=== PATIENT | male | born 1970 | race Caucasian/White ===

== ENCOUNTER 2021-11-28 12:45 | Inpatient (IN) ==
[2021-11-28 15:00] LABS: Basophils # 0.1 K/mcL (0.0-0.2); Basophils % 0.9 %; Eosinophils # 0.2 K/mcL (0.0-0.6); Eosinophils % 3.3 %; Hematocrit 27.3 % (37.5-50.1); Hemoglobin 8.1 g/dL (12.9-16.9); Immature Granulocytes % 0.3 % (0-4); Lymphocytes # 1.8 K/mcL (0.6-4.6); Lymphocytes % 26.7 %; Mean Corpuscular HGB Conc 29.7 g/dL (31.6-35.5); Mean Corpuscular Hemoglobin 29.1 pg (28.0-33.3); Mean Corpuscular Volume 98.2 fL (83.0-100.0); Mean Platelet Volume 8.9 fL (9.4-12.4); Monocytes # 0.7 K/mcL (0.0-1.3); Monocytes % 11.2 %; Neutrophils # 3.8 K/mcL (1.6-8.9); Platelet Count 308 K/mcL (140-400); Red Blood Count 2.78 M/mcL (4.19-5.50); Red Cell Distribution Width 17.5 % (11.5-14.5); Segmented Neutrophils % 57.6 %; White Blood Count 6.6 K/mcL (4.3-11.1)
[2021-11-28 15:08] LABS: INR 1.4; Prothrombin Time 15.9 Seconds (9.4-12.1)
[2021-11-28 15:10] LABS: Activated Partial Thrombo Time 41.9 Seconds (26.0-36.0)
[2021-11-28 15:40] LABS: Alanine Aminotransferase 14 Units/L (7-52); Albumin 2.8 g/dL (3.5-5.7); Albumin/Globulin Ratio 0.6 (1.1-2.2); Alkaline Phosphatase 111 Units/L (34-104); Aspartate Amino Transferase 19 Units/L (13-39); BUN/Creatinine Ratio 14 (6-26); Bilirubin,Direct 0.1 mg/dL (0.0-0.2); Bilirubin,Indirect 0.3 mg/dL (0.0-1.0); Bilirubin,Total 0.4 mg/dL (0.3-1.0); Blood Urea Nitrogen 58 mg/dL (6-20); Calcium 8.4 mg/dL (8.6-10.3); Carbon Dioxide 26 mEq/L (23-29); Chloride 104 mEq/L (98-107); Globulin 4.5 g/dL (2.4-3.5); Glucose 103 mg/dL (70-105); Osmolality,Calculated 294 (280-300); Potassium 5.2 mEq/L (3.5-5.1); Sodium 134 mEq/L (136-145); Total Protein 7.3 g/dL (6.4-8.9); eGFR For African Americans 18 (> 60); eGFR For Non-African Americans 15 (> 60)
[2021-11-28] MEDS ORDERED: Isovue-370 500 ML BOTTLE IVP ONE (16:28)
[2021-11-28 17:36] LABS: Troponin I < 0.03 ng/mL (< 0.04)
[2021-11-28] MEDS ORDERED: Furosemide 40 MG/4 ML VIAL IVP ONE (20:47)
[2021-11-28] MEDS ORDERED: Acetaminophen 325 MG TABLET PO PRN (20:54)
[2021-11-28] MEDS ORDERED: Ondansetron 4 MG/2 ML VIAL IVP PRN (20:54)
[2021-11-28] MEDS ORDERED: Naloxone 0.4 MG/ML INJ IVP PRN (20:54)
[2021-11-28] MEDS ORDERED: Morphine Sulfate 2 MG/ML SYRINGE IVP ONE (22:06)
[2021-11-28 22:40] LABS: Influenza A PCR Negative (Negative); Influenza B PCR Negative (Negative); Resp. Syncytial Virus PCR Negative (Negative)
[2021-11-28 22:42] LABS: SARS-CoV-2 by PCR (In House) Negative (Negative)
[2021-11-29] MEDS ORDERED: Perflutren Lipid Microsphere 1.3 ML in 0.9 % Sodium Chloride 8.7 ML IVP PRN (03:39)
[2021-11-29] MEDS ORDERED: methocarbamoL 500 MG TABLET PO PRN (03:48)
[2021-11-29] MEDS ORDERED: SILDENAFIL CITRATE 50 MG PO PRN (03:48)
[2021-11-29] MEDS ORDERED: *HR* HYDROmorphone 2 MG TABLET PO PRN (03:48)
[2021-11-29] MEDS ORDERED: *HR* FentaNYL PATCH 50 MCG PATCH TD SCH (04:00)
[2021-11-29] MEDS: Gabapentin 300 MG CAPSULE PO SCH ×2 (08:17→21:17)
[2021-11-29 09:52] LABS: Hematocrit 29.2 % (37.5-50.1); Hemoglobin 8.5 g/dL (12.9-16.9); Mean Corpuscular HGB Conc 29.1 g/dL (31.6-35.5); Mean Corpuscular Hemoglobin 29.2 pg (28.0-33.3); Mean Corpuscular Volume 100.3 fL (83.0-100.0); Mean Platelet Volume 9.2 fL (9.4-12.4); Platelet Count 341 K/mcL (140-400); Red Blood Count 2.91 M/mcL (4.19-5.50); Red Cell Distribution Width 17.2 % (11.5-14.5); White Blood Count 6.7 K/mcL (4.3-11.1)
[2021-11-29 10:11] LABS: Calcium 8.5 mg/dL (8.6-10.3); Magnesium 1.7 mg/dL (1.6-2.6); Phosphorous 4.5 mg/dL (2.7-4.5); Potassium 5.4 mEq/L (3.5-5.1)
[2021-11-29 11:25] LABS: Hepatitis B Surface Antibody < 3.10 mIU/mL
[2021-11-29 11:36] LABS: Hepatitis B Surface Antigen Nonreactive (Nonreactive)
[2021-11-29] MEDS ORDERED: 0.9 % Sodium Chloride 250 ML IVC PRN (11:46)
[2021-11-29] MEDS ORDERED: 0.9 % Sodium Chloride 1,000 ML PRIME SCH (12:00)
[2021-11-29] MEDS: *HR* HYDROmorphone 2 MG TABLET PO PRN ×2 (16:22→22:49)
[2021-11-29] MEDS ORDERED: Ipratropium/Albuterol Neb 3 ML IH PRN (16:59)
[2021-11-29] MEDS ORDERED: Leptospermum Honey Gel 44 ML TUBE TP SCH (21:00)
[2021-11-29] MEDS: (Doxepin Hcl 10 MG Capsule) PO SCH (21:17)
[2021-11-29] MEDS: *HR* Heparin 5,000 UNIT/ML VIAL SQ SCH (22:01)
[2021-11-29] MEDS: Leptospermum Honey Gel 44 ML TUBE TP SCH (23:15)
[2021-11-30] MEDS ORDERED: Furosemide 20 MG/2 ML VIAL IVP ONE (00:19)
[2021-11-30] MEDS: *HR* Heparin 5,000 UNIT/ML VIAL SQ SCH ×3 (05:22→20:10)
[2021-11-30 07:17] LABS: Hematocrit 27.3 % (37.5-50.1); Hemoglobin 8.2 g/dL (12.9-16.9); Mean Corpuscular Hemoglobin 29.2 pg (28.0-33.3); Mean Corpuscular Volume 97.2 fL (83.0-100.0); Mean Platelet Volume 9.3 fL (9.4-12.4); Platelet Count 332 K/mcL (140-400); Red Blood Count 2.81 M/mcL (4.19-5.50); Red Cell Distribution Width 16.9 % (11.5-14.5); White Blood Count 5.7 K/mcL (4.3-11.1)
[2021-11-30 07:27] LABS: INR 1.5; Prothrombin Time 16.3 Seconds (9.4-12.1)
[2021-11-30] MEDS: *HR* HYDROmorphone 2 MG TABLET PO PRN ×3 (08:57→21:58)
[2021-11-30] MEDS: Gabapentin 300 MG CAPSULE PO SCH ×2 (08:57→20:10)
[2021-11-30 10:23] LABS: Calcium 8.3 mg/dL (8.6-10.3); Potassium 4.7 mEq/L (3.5-5.1)
[2021-11-30] MEDS: Furosemide 40 MG TABLET PO SCH (11:51)
[2021-11-30] MEDS: (Doxepin Hcl 10 MG Capsule) PO SCH (20:10)
[2021-11-30] MEDS: Acetaminophen 325 MG TABLET PO PRN (23:22)
[2021-12-01] MEDS ORDERED: *HR* HYDROcodone/Acet 10/325 mg TABLET PO ONE (00:55)
[2021-12-01] MEDS: Melatonin 3 MG TABLET PO PRN (01:46)
[2021-12-01] MEDS ORDERED: diazePAM 10 MG/2 ML SYRINGE IVP ONE (02:49)
[2021-12-01] MEDS: *HR* Heparin 5,000 UNIT/ML VIAL SQ SCH ×3 (05:58→20:13)
[2021-12-01] MEDS: *HR* HYDROmorphone 2 MG TABLET PO PRN ×2 (07:29→23:13)
[2021-12-01] MEDS ORDERED: *HR* FentaNYL (PF) 100 MCG/2 ML VIAL IVP PRN (07:45)
[2021-12-01] MEDS ORDERED: *HR* HYDROmorphone PF 0.5 MG/0.5 ML SYRINGE IVP PRN (07:45)
[2021-12-01] MEDS: Furosemide 40 MG TABLET PO SCH (08:05)
[2021-12-01] MEDS ORDERED: 0.9 % Sodium Chloride 250 ML IVC PRN (08:39)
[2021-12-01] MEDS ORDERED: 0.9 % Sodium Chloride 1,000 ML PRIME SCH (08:45)
[2021-12-01] MEDS ORDERED: *HR* FentaNYL PATCH 50 MCG PATCH TD SCH (09:00)
[2021-12-01 11:48] LABS: Hematocrit 34.9 % (37.5-50.1); Mean Corpuscular HGB Conc 29.8 g/dL (31.6-35.5); Mean Corpuscular Hemoglobin 29.3 pg (28.0-33.3); Mean Corpuscular Volume 98.3 fL (83.0-100.0); Mean Platelet Volume 9.3 fL (9.4-12.4); Platelet Count 399 K/mcL (140-400); Red Blood Count 3.55 M/mcL (4.19-5.50); Red Cell Distribution Width 16.5 % (11.5-14.5); White Blood Count 7.6 K/mcL (4.3-11.1)
[2021-12-01 11:49] LABS: Hemoglobin 10.4 g/dL (12.9-16.9)
[2021-12-01 11:56] LABS: INR 1.3
[2021-12-01 12:07] LABS: Calcium 9.4 mg/dL (8.6-10.3); Potassium 5.1 mEq/L (3.5-5.1)
[2021-12-01] MEDS ORDERED: CeFAZolin Syr 2,000MG/20 ML 2,000 MG/20 ML SYRINGE IVPB ONE (12:36)
[2021-12-01] MEDS ORDERED: metroNIDAZOLE 500 MG TABLET PO SCH (15:00)
[2021-12-01] MEDS ORDERED: Lidocaine/EPI 1:100k 1% 30 ML VIAL ONE (15:07)
[2021-12-01] MEDS ORDERED: *HR* Propofol 200 MG/20 ML VIAL IVP ONE (15:17)
[2021-12-01] MEDS ORDERED: Lidocaine 1% 20 ML MDV ONE (15:17)
[2021-12-01] MEDS ORDERED: *HR* FentaNYL (PF) 100 MCG/2 ML VIAL ONE (15:17)
[2021-12-01] MEDS ORDERED: Ondansetron 4 MG/2 ML VIAL ONE (15:17)
[2021-12-01] MEDS ORDERED: Lidocaine -MPF 2% 5 ML VIAL ONE (15:17)
[2021-12-01] MEDS: MetroNIDAZOLE 500 MG/100 ML 500 MG/100 ML BAG IVPB SCH (18:27)
[2021-12-01] MEDS ORDERED: Cefepime HCl 1,000 MG in 0.9 % Sodium Chloride Mini Bag 100 ML IVPB ONE (20:00)
[2021-12-01] MEDS: Gabapentin 300 MG CAPSULE PO SCH (20:03)
[2021-12-01] MEDS: (Doxepin Hcl 10 MG Capsule) PO SCH (20:10)
[2021-12-01] MEDS: Leptospermum Honey Gel 44 ML TUBE TP SCH (20:25)
[2021-12-01] MEDS ORDERED: Vancomycin 1,750 MG/517.5 ML IV.SOLN IVPB ONE (21:00)
[2021-12-01] MEDS ORDERED: Leptospermum Honey Gel 44 ML TUBE TP SCH (21:00)
[2021-12-02] MEDS: MetroNIDAZOLE 500 MG/100 ML 500 MG/100 ML BAG IVPB SCH ×3 (02:42→22:38)
[2021-12-02] MEDS: *HR* Heparin 5,000 UNIT/ML VIAL SQ SCH ×3 (06:29→22:32)
[2021-12-02 07:39] LABS: Hematocrit 29.5 % (37.5-50.1); Mean Corpuscular HGB Conc 29.8 g/dL (31.6-35.5); Mean Corpuscular Hemoglobin 28.9 pg (28.0-33.3); Mean Platelet Volume 9.2 fL (9.4-12.4); Platelet Count 357 K/mcL (140-400); Red Blood Count 3.04 M/mcL (4.19-5.50); Red Cell Distribution Width 16.3 % (11.5-14.5); White Blood Count 6.6 K/mcL (4.3-11.1)
[2021-12-02 07:48] LABS: Calcium 8.6 mg/dL (8.6-10.3); Potassium 5.8 mEq/L (3.5-5.1)
[2021-12-02 07:56] LABS: INR 1.4; Prothrombin Time 15.4 Seconds (9.4-12.1)
[2021-12-02 08:16] LABS: Hemoglobin 8.8 g/dL (12.9-16.9)
[2021-12-02] MEDS: Furosemide 40 MG TABLET PO SCH (08:22)
[2021-12-02] MEDS ORDERED: 0.9 % Sodium Chloride 250 ML IVC PRN (08:38)
[2021-12-02] MEDS ORDERED: *HR* Heparin 10,000 UNIT/10 ML VIAL IV PRN (08:38)
[2021-12-02] MEDS: *HR* HYDROmorphone 2 MG TABLET PO PRN ×2 (10:17→17:54)
[2021-12-02] MEDS ORDERED: MetroNIDAZOLE 500 MG/100 ML 500 MG/100 ML BAG IVPB SCH (17:52)
[2021-12-02] MEDS ORDERED: 0.9 % Sodium Chloride Mini Bag 100 ML ONE (19:56)
[2021-12-02] MEDS: Gabapentin 300 MG CAPSULE PO SCH (20:00)
[2021-12-02] MEDS: (Doxepin Hcl 10 MG Capsule) PO SCH (22:31)
[2021-12-02] MEDS: Acetaminophen 325 MG TABLET PO PRN (22:33)
[2021-12-02] MEDS: Melatonin 3 MG TABLET PO PRN (22:37)
[2021-12-03] MEDS ORDERED: Vancomycin 1,750 MG/517.5 ML IV.SOLN IVPB ONE
[2021-12-03] MEDS: *HR* HYDROmorphone 2 MG TABLET PO PRN (01:48)
[2021-12-03] MEDS ORDERED: *HR* HYDROmorphone 2 MG/ML SYRINGE IVP ONE (02:44)
[2021-12-03] MEDS: *HR* Heparin 5,000 UNIT/ML VIAL SQ SCH (05:23)
[2021-12-03 05:32] LABS: Hematocrit 29.4 % (37.5-50.1); Hemoglobin 9.1 g/dL (12.9-16.9); Mean Corpuscular Hemoglobin 29.5 pg (28.0-33.3); Mean Corpuscular Volume 95.5 fL (83.0-100.0); Mean Platelet Volume 9.2 fL (9.4-12.4); Platelet Count 338 K/mcL (140-400); Red Blood Count 3.08 M/mcL (4.19-5.50); Red Cell Distribution Width 16.3 % (11.5-14.5)
[2021-12-03 05:51] LABS: Calcium 8.3 mg/dL (8.6-10.3); Potassium 4.5 mEq/L (3.5-5.1)
[2021-12-03 06:34] VITALS: PULSE 68; O2SAT 98
[2021-12-03] MEDS: Acetaminophen 325 MG TABLET PO PRN (07:00)
[2021-12-03] MEDS: MetroNIDAZOLE 500 MG/100 ML 500 MG/100 ML BAG IVPB SCH (07:00)
[2021-12-03] MEDS ORDERED: *HR* HYDROmorphone 2 MG/ML SYRINGE IVP PRN (08:20)
[2021-12-03] MEDS: Furosemide 40 MG TABLET PO SCH (08:27)
[2021-12-03] MEDS ORDERED: 0.9 % Sodium Chloride 250 ML IVC PRN (08:47)
[2021-12-03] MEDS ORDERED: *HR* Heparin 10,000 UNIT/10 ML VIAL IV PRN (08:47)
[2021-12-03] MEDS ORDERED: Testosterone Cypionate 200 MG/ML 10 ML MDV IM SCH (12:00)
[2021-12-03 14:19] VITALS: BP 212/98; TEMP 97.4
[2021-12-04] MEDS ORDERED: *HR* FentaNYL PATCH 50 MCG PATCH TD SCH (08:00)
== END 2021-12-03 13:39 | disposition home or self-care (01) | DRG 616 ==
LOC: EMEROOARM 12:45 → 2ANU 12:45 → SUATTDRO 22:46 → 2ANU 11-29 00:40
PROVIDERS: ADMIT Internal Medicine; ATTEND Internal Medicine